=== PATIENT | male | born 1965 | race Caucasian/White ===

== ENCOUNTER 2020-12-16 05:16 | Emergency (ER) | payer OTHER ==
[~2020-12-16] VITALS: Ht 172.7 cm; Wt 67.6 kg
--- NOTE | 2020-12-16 05:57 | NUR ---
SD BIBS FOR C/O FEVER, H/A, RUNNY NOSE AND COUGH X 1 WEEK. A/OX4. ON ROOM AIR TOLERATING AT SPO2 93%.
[2020-12-16 06:00] VITALS: BP 127/98
--- NOTE | 2020-12-16 06:40 | NUR ---
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 Patient discharged to home in stable condition. Written and verbal after care instructions given. Patient verbalizes understanding of instruction.
--- NOTE | 2020-12-16 07:47 | NUR ---
CALLED PT TO INFORM OF POSITIVE COVID RESULT, NO ANSWER AND VOICEMAIL IS NOT SET UP, WILL CALL AGAIN.
== END 2020-12-16 06:45 | disposition home or self-care (01) ==
LOC: ER 05:25
DX: U07.1 COVID-19 (principal); R51.9 Headache, unspecified
CPT/HCPCS: 87426; 99283; C9803